=== PATIENT | female | born 1985 | race Two or more races ===

== ENCOUNTER 2019-08-04 10:03 | Emergency (ER) | payer BC ==
--- NOTE | 2019-08-04 10:30 | ER Document Report ---
ED General - General Chief Complaint: Fever Stated Complaint: FEVER Time Seen by Provider: 08/04/19 10:12 Primary Care Provider: VINOD,SWATI [Primary Care Provider] - Follow up as needed - HPI Notes: Patient is a 33-year-old female who presents the emergency department for evaluation of intermittent fever. She states she is also had an intermittent cough and sore throat, although she is unsure as to whether or not this is secondary to infection or seasonal allergies. She states that these fevers have been going on intermittently for about the last 2 weeks. She delivers pizza, [place]. She is unsure if she has been directly exposed. She denies any difficulty with sense of smell or taste. She denies any pain at this time. She states her last fever was 2 days ago when it was 102.1. - Related Data Allergies/Adverse Reactions: Penicillins Allergy (Severe, Verified 05/16/12 19:41) Past Medical History - General Information source: Patient - Social History Smoking Status: Never Smoker Family History: Reviewed & Not Pertinent Patient has homicidal ideation: No Neurological Medical History: Denies: Hx Seizures Psychiatric Medical History: Reports: Hx Bipolar Disorder Past Surgical History: Reports: Hx Dilation and Curettage - Immunizations Immunizations up to date: Yes Hx Diphtheria, Pertussis, Tetanus Vaccination: No Review of Systems - Review of Systems Constitutional: See HPI EENT: See HPI Respiratory: See HPI -: Yes All other systems reviewed and negative Physical Exam - Vital signs Vitals: Temp Pulse Resp BP Pulse Ox 97.8 F 91 18 151/97 H 99 08/04/19 10:09 08/04/19 10:09 08/04/19 10:09 08/04/19 10:09 08/04/19 10:09 - Notes Notes: Vital signs reviewed, please refer to chart. Head is normocephalic, atraumatic. Pupils equal round, reactive to light. Oral mucosa is moist, uvula is midline, pharynx is without erythema or exudate. Neck is supple without meningismus. Heart is regular rate and rhythm. Lungs are clear to auscultation bilaterally. Abdomen is soft, nontender, normoactive bowel sounds throughout. Extremities without cyanosis, clubbing. Posterior calves are nontender. Peripheral pulses are equal. Skin is warm and dry. Patient is awake, alert, neurological exam is nonfocal. Course - Re-evaluation Re-evalutation: 08/04/19 10:28 Patient presents to the emergency department for evaluation of intermittent fevers. She states she is also had a cough. She denies any other real associated symptoms. Certainly, it is possible that she has been directly exposed to a COVID-19 positive patient. She is in food delivery. I do believe it is prudent to have her quarantine for 2 weeks. She is told she needs to stay at home, isolate herself from others. We discussed the utility of actually performing COVID-19 testing, I do not believe it is necessary at this time, as I believe quarantine is warranted either way. Patient is amenable to this, understands the details of quarantine, and is discharged. - Vital Signs Vital signs: Temp Pulse Resp BP Pulse Ox 97.8 F 91 18 151/97 H 99 08/04/19 10:10 08/04/19 10:09 08/04/19 10:09 08/04/19 10:09 08/04/19 10:09 Discharge - Discharge Clinical Impression: Intermittent fever Condition: Stable Disposition: HOME, SELF-CARE Instructions: Fever (OM) Additional Instructions: It is possible that your symptoms have been caused by the coronavirus. It is therefore recommended that you quarantine for 2 weeks, do not go out into pub lic. Avoid close contact with other family members, and avoid any contact with people outside of your immediate family. If you have any family members with whom he lives, they should be quarantined as well. Return to the emergency department with worsening or new concerning symptoms of any sort. Forms: Return to Work Referrals: LOCAL,NO [Primary Care Provider] - Follow up as needed
[2019-08-04 10:51] VITALS: BP 119/92
== END 2019-08-04 10:48 | disposition home or self-care (01) ==
LOC: ER 10:03
DX: R50.9 Fever, unspecified (principal); R05 Cough; J02.9 Acute pharyngitis, unspecified; Z88.0 Allergy status to penicillin
CPT/HCPCS: 99283